=== PATIENT | male | born 1975 | race Caucasian/White ===

== ENCOUNTER → 2019-03-15 | Outpatient (CLI) | payer OTHER ==
--- NOTE | 2019-03-15 17:58 | RADIOLOGY REPORT (SQ) ---
EXAM DESCRIPTION: CT ABD/PELVIS WITH IV ORAL COMPLETED DATE/TIME: 03/15/2019 5:34 pm REASON FOR STUDY: RLQ ABDOMINAL PAIN R10.31 RIGHT LOWER QUADRANT PAIN COMPARISON: None. TECHNIQUE: CT scan of the abdomen and pelvis performed using helical scanning technique with dynamic intravenous contrast injection. No oral contrast. Images reviewed with lung, soft tissue, and bone windows. Reconstructed coronal and sagittal MPR images reviewed. Delayed images for evaluation of the urinary system also acquired. All images stored on PACS. All CT scanners at this facility use dose modulation, iterative reconstruction, and/or weight based d osing when appropriate to reduce radiation dose to as low as reasonably achievable (ALARA). [facility]: Dose Right [facility]: CareDose [facility]: Dose Right [facility]: Teradose 4D [facility]: IBillionaire CONTRAST TYPE AND DOSE: Contrast/concentration: Isovue 350.00 mg/ml; Total Contrast Delivered: 100.0 ml; Total Saline Delivered: 27.5 ml RENAL FUNCTION: GFR > 60. RADIATION DOSE: CT Rad equipment meets quality standard of care and radiation dose reduction techniq ues were employed. CTDIvol: 20.5 - 20.5 mGy. DLP: 2568 mGy-cm.. LIMITATIONS: None. FINDINGS: LOWER CHEST: Status post median sternotomy and aortic valve replacement. The left ventric le is enlarged. There is no pericardial effusion. There are parenchymal bands in the left lower lob e. There is no basilar consolidation or pleural effusion. LIVER: The morphology of the liver is non cirrhotic. The portal veins are patent. SPLEEN: No splenomegaly or splenic mass. Incidental accessory splenules. PANCREAS: No acute abnormality. GALLBLADDER: No abnormality that is apparent on CT. ADRENAL GLANDS: No mass or asymmetry. RIGHT KIDNEY AND URETER: No solid masses. No calcifications. No hydronephrosis or hydroureter. LEFT KIDNEY AND URETER: No solid masses. No calcifications. No hydronephrosis or hydroureter. AORTA AND VESSELS: No aneurysm or dissection of the abdominal aorta. RETROPERITONEUM: No retroperitoneal adenopathy, hemorrhage or mass. BOWEL AND PERITONEAL CAVITY: No bowel obstruction, bowel wall thickening of, or pericolonic/perienter ic inflammation. No mesenteric adenopathy, free intraperitoneal fluid or mesenteric/peritoneal mass. APPENDIX: The appendix is dilated and it measures up to 13 mm in diameter ; in addition, there is ass ociated stranding of the periappendiceal fat. There is no extraluminal collection or free intraperit sheriff air. PELVIS: No abnormality. ABDOMINAL WALL: No masses or hernias. BONES: No acute findings. OTHER: No other findings. IMPRESSION: Acute uncomplicated appendicitis. TECHNICAL DOCUMENTATION: JOB ID: [id number] Quality ID # [id number]: Final reports with documentation of one or more dose reduction techniques (e.g., Au tomated exposure control, adjustment of the mA and/or kV according to patient size, use of iterative reconstruction technique) 2010 [employer]- All Rights Reserved Reading location - IP/workstation name: [email or web address]
== END ==
LOC: RAD 14:35
PROVIDERS: ATTEND Family Medicine
DX: K35.80 Unspecified acute appendicitis (principal); R10.31 Right lower quadrant pain
CPT/HCPCS: 74177; 82565